=== PATIENT | male | born 1950 | race Caucasian/White ===

== ENCOUNTER → 2019-04-10 | Day surgery (SDC) | payer MEDICARE, OTHER ==
[2019-04-06 13:02] LABS: Basophils # (auto) 0.1 uL; Basophils % (auto) 1.3 % (0.0-2.0); Eosinophils # (auto) 0.1 uL; Eosinophils % (auto) 1.4 % (0.0-7.0); Hematocrit 47.2 % (41.0-53.0); Hemoglobin 15.8 g/dL (13.5-17.5); Lymphocytes # (auto) 1.8 uL; Lymphocytes % (auto) 27.1 % (10.0-50.0); Mean Corpuscular Hemoglobin 30.5 pg (28.0-32.0); Mean Corpuscular Hgb Conc. 33.5 g/dL (32.0-36.0); Monocytes # (auto) 0.8 uL; Monocytes % (auto) 11.3 % (0.0-12.0); Neutrophils % (auto) 58.9 % (37.0-80.0); Platelet Count (auto) 237 10^3/uL (140-450); Red Blood Cells 5.18 10^6/uL (4.5-5.90); Red Cell Distribution Width 14.4 % (11.8-14.3); White Blood Cell 6.8 10^3/uL (4.4-10.8)
[2019-04-06 13:09] LABS: Urine Bacteria NONE SEEN /hpf (None Seen); Urine Blood 2+ /uL (Negative); Urine Hyaline Cast FEW /lpf (0 - 2); Urine Specific Gravity 1.021 (1.001-1.035); Urine WBC 4 /hpf (0 - 3)
[2019-04-06 13:18] LABS: Partial Thromboplastin Time 26.4 sec (23.64-32.05)
[2019-04-06 13:35] LABS: Albumin 3.6 g/dL (3.4-5.0); BUN/Creatinine Ratio 16.1; Calcium 8.5 mg/dL (8.5-10.1); Potassium 3.8 mmol/L (3.5-5.1)
[2019-04-06 13:37] LABS: Bilirubin, Total 0.8 mg/dL (0.2-1.0); Total Protein 6.9 g/dL (6.4-8.2)
[~2019-04-10] VITALS: Ht 193 cm; Wt 101.2 kg
[~2019-04-10] MED LIST: DexAMETHasone SOD PHOS 10MG/1ML VIAL INJ ONE; HYDROmorphone HCL 2 MG/ML VL IV PRN; KETOROLAC TROMETH 30 MG/ML 1ML VIAL IV ONE; LABETALOL HCL 5 MG/ML 4ML SYRINGE IV PRN; MEPERIDINE HCL (50 MG/ML) 1 ML VIAL ONE; MIDAZOLAM HCL 1MG/1ML-2 ML VIAL IV PRN; MIDAZOLAM HCL 1MG/1ML-2 ML VIAL ONE; ONDANSETRON HCL 4 MG/2 ML VIAL IV PRN; ONDANSETRON HCL 4 MG/2 ML VIAL ONE; PROPOFOL 10 MG/ML 20 ML IV ONE; ROPIVACAINE 0.5% (5MG/ML) 20ML AMPULE IJ ONE; SUCCINYLCHOLINE CHLORIDE 20 MG/ML 10ML VIAL IV ONE; ceFAZolin 1GM/50ML 100 ML IV ONE; ePHEDrine SULFATE 50 MG/ML AMP IV PRN; fentaNYL CITRATE 100 MCG/2 ML VL ONE; fentaNYL CITRATE 5 ML ONE
[2019-04-10 10:28] VITALS: BP 155/91
== END | disposition home or self-care (01) ==
LOC: SUR 06:18
PROVIDERS: ATTEND Orthopaedic Surgery
DX: M75.102 Unspecified rotator cuff tear or rupture of left shoulder, not specified as traumatic (principal); M75.42 Impingement syndrome of left shoulder; M89.8X1 Other specified disorders of bone, shoulder; M19.012 Primary osteoarthritis, left shoulder; I10 Essential (primary) hypertension; I25.10 Atherosclerotic heart disease of native coronary artery without angina pectoris; E66.9 Obesity, unspecified; Z87.891 Personal history of nicotine dependence; Z98.890 Other specified postprocedural states; Z68.27 Body mass index [BMI] 27.0-27.9, adult
CPT/HCPCS: 23180; 23412; 23415; 36415; 80053; 81001; 85025; 85610; 85730; 88304; 88311; 93005; J0330; J0690; J1100; J2175; J2250; J2405; J2704; J2795; J3010; A4565

== ENCOUNTER 2022-03-30 06:20 | Inpatient (IN) | payer OTHER ==
[~2022-03-30] VITALS: Ht 193 cm; Wt 104.5 kg
[2022-03-30] VITALS (9 sets, daily range): BP systolic 111–142; BP diastolic 68–80
[2022-03-30] MEDS ORDERED: ceFAZolin 1GM/50ML 100 ML IV ONE (06:56)
[2022-03-30] MEDS ORDERED: BUPIVACAINE 0.25% INJ 50ML VIAL ONE (07:05)
[2022-03-30] MEDS ORDERED: SUCCINYLCHOLINE CHLORIDE 20 MG/ML 10ML VIAL IV ONE (07:05)
[2022-03-30] MEDS ORDERED: EPINEPHrine HCL 1 MG/1 ML AMP ONE (07:05)
[2022-03-30] MEDS ORDERED: ROCURONIUM 10MG/ML 10ML VIAL IV ONE (07:05)
[2022-03-30] MEDS ORDERED: VANCOMYCIN HCL 1000 MG VL ONE (07:08)
[2022-03-30] MEDS ORDERED: MORPHINE SULF PF 5 MG/10 ML VIAL ONE ×2 (07:11→07:25)
[2022-03-30] MEDS ORDERED: TETRACAINE 1% INJ 2 ML VIAL IJ ONE (07:12)
[2022-03-30] MEDS ORDERED: DexAMETHasone SOD PHOS 10MG/1ML VIAL INJ IV ONE (07:15)
[2022-03-30] MEDS ORDERED: PHENYLEPHRINE HCL 10 MG/ML VL IV ONE (07:15)
[2022-03-30] MEDS ORDERED: KETOROLAC TROMETH 30 MG/ML 1ML VIAL ONE (07:17)
[2022-03-30] MEDS ORDERED: fentaNYL CITRATE 100 MCG/2 ML VL ONE (07:25)
[2022-03-30] MEDS ORDERED: MIDAZOLAM HCL 2MG/2ML 2ml VIAL (1mg/ml) ONE ×2 (07:25→07:26)
[2022-03-30] MEDS ORDERED: TRANEXAMIC ACID 20 ML ONE (07:27)
[2022-03-30] MEDS ORDERED: HYDROmorphone HCL 2 MG/ML VL/or syr IV PRN (08:45)
[2022-03-30] MEDS ORDERED: LABETALOL HCL 5 MG/ML 4ML SYRINGE IV PRN (08:45)
[2022-03-30] MEDS ORDERED: ePHEDrine SULFATE 50 MG/ML AMP IV PRN (08:45)
[2022-03-30] MEDS ORDERED: NALBUPHINE HCL 10 MG/1ml INJECTION SUBCUT ONE (08:45)
[2022-03-30] MEDS ORDERED: DexAMETHasone SOD PHOS 10MG/1ML VIAL INJ IV PRN (08:45)
[2022-03-30] MEDS ORDERED: NALOXONE HCL 0.4 MG/ML VIAL IV PRN (08:45)
[2022-03-30] MEDS ORDERED: ONDANSETRON HCL 4 MG/2 ML VIAL IV PRN ×3 (08:45→10:45)
[2022-03-30] MEDS ORDERED: MIDAZOLAM HCL 2MG/2ML 2ml VIAL (1mg/ml) IV PRN (08:45)
[2022-03-30] MEDS ORDERED: oxyCODONE HCL 5MG TAB PO PRN ×2 (10:30)
[2022-03-30] MEDS ORDERED: ACETAMINOPHEN 325 MG TAB PO PRN (10:30)
[2022-03-30] MEDS: D5W/LACTATED RINGERS 1,000 ML IV SCH ×2 (10:30→19:15)
[2022-03-30] MEDS: KETOROLAC TROMETH 30 MG/ML 1ML VIAL IV SCH ×3 (12:00→23:15)
[2022-03-30] MEDS: ACETAMINOPHEN 325 MG TAB PO SCH ×3 (12:00→23:14)
[2022-03-30] MEDS: ceFAZolin 2 GM in D5W 5% 100 ML IV SCH ×2 (14:00→23:13)
[2022-03-30] MEDS ORDERED: diphenhdrAMINE HCL 50 MG/1 ML VL IM ONE (16:45)
[2022-03-30] MEDS ORDERED: diphenhdrAMINE HCL 50 MG/1 ML VL ONE (16:54)
[2022-03-30] MEDS: DOCUSATE SOD 100 MG CAP PO SCH (23:14)
[2022-03-30] MEDS: PREGABALIN 25 MG CAP PO SCH (23:14)
[2022-03-31] VITALS (13 sets, daily range): BP systolic 93–126; BP diastolic 56–74
[2022-03-31 05:20] LABS: Basophils # (auto) 0.1 10 ^3/uL (0-0.2); Basophils % (auto) 0.9 % (0.0-2.0); Eosinophils # (auto) 0 10 ^3/uL (0-0.8); Hematocrit 32.8 % (41.0-53.0); Hemoglobin 11.1 g/dL (13.5-17.5); Lymphocytes # (auto) 1.2 10 ^3/uL (0.4-5.4); Lymphocytes % (auto) 10.9 % (10.0-50.0); Mean Corpuscular Hemoglobin 30.5 pg (28.0-32.0); Mean Corpuscular Hgb Conc. 33.8 g/dL (32.0-36.0); Mean Corpuscular Volume 90.3 fL (80.0-100.0); Monocytes # (auto) 1.3 10 ^3/uL (0-1.3); Monocytes % (auto) 12.4 % (0.0-12.0); Neutrophils # (auto) 8.1 10 ^3/uL (1.6-8.6); Neutrophils % (auto) 75.8 % (37.0-80.0); Red Blood Cells 3.63 10^6/uL (4.5-5.90); Red Cell Distribution Width 16.3 % (11.8-14.3); White Blood Cell 10.7 10^3/uL (4.4-10.8)
[2022-03-31 05:36] LABS: Calcium 8.1 mg/dL (8.5-10.1); Potassium 4.4 mmol/L (3.5-5.1)
[2022-03-31 05:39] LABS: BUN/Creatinine Ratio 22.2
[2022-03-31] MEDS: D5W/LACTATED RINGERS 1,000 ML IV SCH ×2 (06:30→16:30)
[2022-03-31] MEDS: KETOROLAC TROMETH 30 MG/ML 1ML VIAL IV SCH ×3 (06:53→16:55)
[2022-03-31] MEDS: ACETAMINOPHEN 325 MG TAB PO SCH ×3 (06:53→18:00)
[2022-03-31] MEDS: PREGABALIN 25 MG CAP PO SCH (09:08)
[2022-03-31] MEDS: DOCUSATE SOD 100 MG CAP PO SCH (09:08)
[2022-03-31] MEDS ORDERED: ASPirin 81 mg TAB PO SCH (10:00)
[2022-03-31] MEDS ORDERED: TAMSULOSIN HYDROCHLORIDE 0.4 MG CAP PO ONE (15:00)
== END 2022-03-31 18:42 | disposition home or self-care (01) | DRG 470 ==
LOC: SUR 06:20 → TELE 10:32 → TELE-EAST 17:31
PROVIDERS: ADMIT Orthopaedic Surgery; ATTEND Orthopaedic Surgery
PROC: 0SRD069 Replacement of Left Knee Joint with Oxidized Zirconium on Polyethylene Synthetic Substitute, Cemented, Open Approach (ICD-10-PCS; principal; 2022-03-30 07:43)
DX: M17.0 Bilateral primary osteoarthritis of knee (principal); Z20.822 Contact with and (suspected) exposure to COVID-19; Z85.828 Personal history of other malignant neoplasm of skin
CPT/HCPCS: 36415; 73562; 80048; 82962; 85025; 86850; 86900; 86901; 97163; G0378; J0171; J0330; J0690; J1100; J1885; J2250; J3490; J7060